=== PATIENT | female | born 2000 | race Asian ===

== ENCOUNTER 2022-11-20 15:05 | Emergency (ER) | payer BC, MEDICAID, OTHER ==
[~2022-11-20] VITALS: Ht 154.9 cm; Wt 65.9 kg
[2022-11-20] MEDS ORDERED: IBUPROFEN 600 MG TABLET PO ONE (18:00)
[2022-11-20] MEDS ORDERED: LIDOCAINE 5% TRANSDERMAL PATCH TD ONE (18:00)
[2022-11-20] MEDS ORDERED: BACLOFEN 10 MG TABLET PO ONE (18:00)
[2022-11-20] MEDS ORDERED: BACL10TA PO (18:23)
[2022-11-20] MEDS ORDERED: IBUP-1492 PO (18:24)
[2022-11-20 18:55] VITALS: BP 111/61
== END 2022-11-20 19:22 | disposition home or self-care (01) ==
LOC: EMS 15:08
DX: S13.4XXA Sprain of ligaments of cervical spine, initial encounter (principal); V89.2XXA Person injured in unspecified motor-vehicle accident, traffic, initial encounter; Y93.89 Activity, other specified; Y92.89 Other specified places as the place of occurrence of the external cause; Y99.8 Other external cause status
CPT/HCPCS: 72125; 99284; Z7502; Z7610